=== PATIENT | male | born 1950 | race Caucasian/White ===

== ENCOUNTER 2017-04-08 04:25 | Emergency (ER) | payer BC, OTHER ==
[~2017-04-08] VITALS: Ht 185.4 cm; Wt 88.5 kg
[~2017-04-08 04:25] MED LIST: IBUP-1017 PO
[2017-04-08 04:45] VITALS: BP_SYST 157
--- NOTE | 2017-04-08 04:45 | NUR ---
Patient to ER bed 7 for evaluation. Side rails up.
--- NOTE | 2017-04-08 04:50 | NUR ---
PT IN RM 7 WITH C/O NOSEBLEED, S/P CAUTERIZATION ON SUNDAY, NOSEBLEED BEGAN WHEN 'SCAB CAME LOOSE' DR ALEJO AWARE.
--- NOTE | 2017-04-08 05:00 | NUR ---
ER at bedside examining patient.
[2017-04-08] MEDS ORDERED: OXYMETAZOLINE HCL 0.05% NASAL SPRAY NS ONE (05:30)
--- NOTE | 2017-04-08 05:40 | NUR ---
RHINOROCKET PLACE IN PT'S LEFT NOSTRIL, TOLERATED PROCEEDURE WELL.
[2017-04-08 06:29] VITALS: BP_SYST 157
--- NOTE | 2017-04-08 06:29 | NUR ---
Patient given written and verbal discharge instructions and verbalizes understanding. ER MD ALEJO discussed with patient the results and treatment provided. Patient in stable condition. ID arm band removed. NO Rx given. Patient educated on pain management and to follow up with PMD. Pain Scale 0/10. Opportunity for questions provided and answered.
== END 2017-04-08 06:29 | disposition home or self-care (01) ==
LOC: SED 04:25
DX: R04.0 Epistaxis (principal); Z88.2 Allergy status to sulfonamides; Z79.899 Other long term (current) drug therapy
CPT/HCPCS: 99284